=== PATIENT | female | born 1940 | race Caucasian/White ===

== ENCOUNTER 2017-01-17 14:49 | Emergency (ER) | payer MEDICARE, OTHER ==
[~2017-01-17] VITALS: Ht 152.4 cm; Wt 63.5 kg
[~2017-01-17 14:49] MED LIST: ACET325T45 PO; ADV25050 INH; ALBU18HF IH; AMIO200T46 PO; ASC500 PO; ASPI81TA3 PO; ATOR20TA38 PO; COU3 PO; DOCU240C14 PO; FERR-55 PO; FURO-109 PO; LISI-523 PO; MULT1TAB13 PO; Metoprolol Succinate PO; OMEP20CA9 PO; PROT946L PO; SERT50TA PO
[2017-01-17 15:00] VITALS: Ht 152.4 cm; Wt 63.5 kg
[2017-01-17] MEDS ORDERED: ACETAMINOPHEN 500 MG TAB PO STA (15:42)
--- NOTE | 2017-01-17 16:28 | RADRPT ---
PROCEDURE: XR Chest. CLINICAL INDICATION: Chest pain , cough TECHNIQUE: Single frontal view of the chest was obtained COMPARISON: 09/15/14 FINDINGS: The heart is enlarged. The thoracic aorta is calcified. The patient is status post sternotomy. There is mild bibasilar lower lobe linear atelectasis. The lungs are otherwise clear. There is no pleural effusion or pneumothorax. RPTAT: AA IMPRESSION: Mild cardiomegaly. Calcified aorta consistent with atherosclerotic disease. Mild bibasilar linear atelectatic changes. .Danial France MD, MD Date Time Electronically viewed and signed by .Danial France MD, on 01/17/2017 16:28 .S/
[2017-01-17] MEDS ORDERED: D-ME473S18 PO (16:31)
[2017-01-17] MEDS ORDERED: ACET500C5 PO (16:31)
[2017-01-17] MEDS ORDERED: AZIT250T94 PO (16:31)
--- NOTE | 2017-01-17 16:33 | ERD ---
ER Documentation Chief Complaint Date/Time DATE: 01/17/17 TIME: 16:32 Chief Complaint cough x 2 weeks HPI 76-year-old female presents with a cough for last 2 weeks which is productive sputum. She denies fevers, chest pain, vomiting, abdominal pain, neck stiffness , rashes per ROS All systems reviewed and are negative except as per history of present illness. Medications Home Meds Active Scripts Acetaminophen* (Tylophen*) 500 Mg Capsule, 1 CAP PO Q6H Y for PAIN AND OR ELEVATED TEMP, #15 CAP Prov:FREDI SPRINGER MD 01/17/17 Dextromethorphan Hb-Promethazine Hcl (Promethazine DM Syrup) 473 Ml Syrup, 5 ML PO Q6H Y for COUGH, #4 OZ Prov:FREDI SPRINGER MD 01/17/17 Azithromycin* (Zithromax*) 250 Mg Tablet, 250 MG PO .ZPACK DIRECTED, #6 TAB TAKE 500 MG (2 TABS) THE FIRST DAY THEN 250 MG (1 TAB) DAYS 2-5 Prov:FREDI SPRINGER MD 01/17/17 Warfarin Sod (Coumadin) 3 Mg Tab, 3 MG PO ONCE@17, #5 Prov:VENICE ROSALES NP 09/15/14 [Metoprolol Succinate] 25 MG TABSR No Conflict Check, 12.5 MG PO HS for 30 Days Prov:VENICE ROSALES NP 09/15/14 Lisinopril* (Zestril*) 5 Mg Tab, 5 MG PO DAILY for 30 Days Prov:VENICE ROSALES NP 09/15/14 Furosemide* (Lasix*) 40 Mg Tab, 40 MG PO DAILY for 30 Days Prov:VENICE ROSALES NP 09/15/14 Atorvastatin Calcium* (Atorvastatin Calcium*) 20 Mg Tab, 40 MG PO HS for 30 Days Prov:VENICE ROSALES NP 09/15/14 Amiodarone Hcl* (Cordarone*) 200 Mg Tab, 100 MG PO DAILY for 30 Days, TAB Prov:VENICE ROSALES NP 09/15/14 Docusate Calcium* (Docusate Calcium*) 240 Mg Cap, 240 MG PO DAILY for 30 Days Prov:VENICE ROSALES NP 08/26/14 Reported Medications Sertraline Hcl* (Zoloft*) 50 Mg Tablet, 50 MG PO DAILY, TAB 09/10/14 Ascorbic Acid (Vitamin C) 500 Mg Tab, 500 MG PO DAILY, TAB 09/10/14 Albuterol Sulfate* (Ventolin HFA*) 18 Gm Hfa.aer.ad, 2 PUFF IH Q4H Y for WHEEZING AND RESP DISTRESS, EA 09/10/14 Acetaminophen* (Acetaminophen*) 325 Mg Tablet, 650 MG PO Q4H Y for FEVER GREATER THAN 100.6, TAB 09/10/14 Protein Supplement (Promod) 946 Ml Liquid, 30 ML PO TID 09/10/14 Omeprazole* (Prilosec*) 20 Mg Capsule.dr, 20 MG PO BID, CAP 09/10/14 Multivitamins/Minerals* (Multivitamin w/Minerals*) 1 Tab Tablet, 1 TAB PO DAILY , TAB 09/10/14 Ferrous Sulfate* (Ferrous Sulfate*) 325 Mg Tablet, 325 MG PO DAILY, TAB 09/10/14 Salmeterol Xinaf/Fluticasone* (Advair*) 250-50 Diskus Inhaler, 1 INH INH BID, INH 09/10/14 Aspirin* (Aspirin* Chew) 81 Mg Tab.chew, 81 MG PO DAILY, TAB.CHEW 09/10/14 Allergies Allergies: Coded Allergies: No Known Drug Allergies (Verified Allergy, Unknown, 09/10/14) PMhx/Soc History of Surgery: Yes (CABG) Hx Neurological Disorder: No Hx Respiratory Disorders: Yes (ashtma) Hx Cardiac Disorders: Yes (pacemaker, chest pain, high cholesterol, cad) Hx Psychiatric Problems: No Hx Miscellaneous Medical Probl: Yes (CAD, L popliteal DVT,htn asthma, COPD) Hx Alcohol Use: No Hx Substance Use: No Hx Tobacco Use: No Physical Exam Vitals Vital Signs Date Time Temp Pulse Resp B/P Pulse Ox O2 Delivery O2 Flow Rate FiO2 01/17/17 15:00 97.6 50 20 128/60 97 Physical Exam Const: [] Alert, [id number] per Head: Atraumatic Eyes: Normal Conjunctiva ENT: Normal External Ears, Nose and Mouth. Neck: Full range of motion..~ No meningismus. Resp: Clear to auscultation bilaterally Cardio: Regular rate and rhythm, no murmurs Abd: Soft, non tender, non distended. Normal bowel sounds Skin: No petechiae or rashes Back: No midline or flank tenderness Ext: No cyanosis, or edema Neur: Awake and alert Psych: Normal Mood and Affect Results 24 hrs Current Medications Medications (Trade) Dose Ordered Sig/Kathryn Route PRN Reason Start Time Stop Time Status Last Admin Dose Admin Acetaminophen (Tylenol Tab) 500 mg ONCE STAT PO 01/17/17 15:42 01/17/17 15:43 DC 01/17/17 15:57 Procedures/MDM Chest X-ray 1V Interpreted by me: Soft Tissue: No acute abnormalities Bones: No acute abnormalities Mediastinum/Cardiac Silhouette/Lungs: [No acute abnormalities]. Impression have normal 1 view chest x-ray Patient presents with productive cough for last 2 weeks. She will be treated given the duration of Zithromax, promethazine and Tylenol. There is no evidence of hypoxemia, respiratory distress, signs or symptoms of PE, acute coronary syndrome. The patient was stable with no new complaints during the ER course. Clinically, there is no current evidence to suggest meningitis, sepsis, acute abdomen, pneumonia, acute coronary syndrome, pulmonary embolism, or any other emergent condition appearing to require further evaluation or hospitalization. The patient should certainly return for any new or worsening symptoms per the aftercare instructions. They should otherwise follow-up with her primary care doctor for reevaluation this week. Departure Diagnosis: Primary Impression: Cough Condition: Stable Patient Instructions: Acute Bronchitis Additional Instructions: X-ray normal. Cheque otro vez con randolph doctor primario en el proximo mead or regresa para mas o nueva simptomas. FREDI SPRINGER MD January 17, 2017 16:33
[2017-01-17 16:55] VITALS: BP 163/70; PULSE 58; RESP 18; TEMP 96.9
== END 2017-01-17 16:57 | disposition home or self-care (01) ==
LOC: FTE 14:49
DX: R05 Cough (principal); I10 Essential (primary) hypertension; J45.909 Unspecified asthma, uncomplicated; J44.9 Chronic obstructive pulmonary disease, unspecified; I25.10 Atherosclerotic heart disease of native coronary artery without angina pectoris; Z79.01 Long term (current) use of anticoagulants; Z79.82 Long term (current) use of aspirin; Z98.61 Coronary angioplasty status; Z95.0 Presence of cardiac pacemaker
CPT/HCPCS: 71010

== ENCOUNTER 2018-12-31 09:04 | Observation (INO) | payer MEDICARE, OTHER ==
[~2018-12-31] VITALS: Ht 157.5 cm; Wt 54.4 kg
[~2018-12-31 09:04] MED LIST changes: +ACET500C5 PO; +ASPI-903 PO; -ASPI81TA3 PO; +AZIT250T PO; +D-ME473S18 PO
--- NOTE | 2018-12-31 09:57 | ERD ---
ER Documentation Chief Complaint Chief Complaint cough, congestion & nausea x1wk, denies pain HPI This is an 78-year-old woman complaining of pink sputum cough, shortness of breath, dyspnea on exertion, and chest congestion x1 week. Patient states her symptoms have been constant and daily, she denies fevers or chills, no chest pam n, no vomiting or diarrhea. Patient uses ANAND inhibitor therapy for blood pressure control daily ROS All systems reviewed and are negative except as per history of present illness. Medications Home Meds Reported Medications Aspirin* (Aspirin* EC) 81 Mg Tablet.dr, 81 MG PO DAILY, TAB 12/31/18 Levothyroxine Sodium* (Levothyroxine Sodium*) 88 Mcg Tablet, 88 MCG PO BEFORE BREAKFAST, #30 TAB 12/31/18 Atorvastatin Calcium* (Atorvastatin Calcium*) 20 Mg Tablet, 20 MG PO QHS, #30 TAB 12/31/18 Amiodarone Hcl* (Amiodarone Hcl*) 200 Mg Tablet, 200 MG PO DAILY, #30 TAB 12/31/18 Enalapril Maleate* (Enalapril Maleate*) 2.5 Mg Tablet, 2.5 MG PO DAILY, TAB 12/31/18 Omeprazole* (Omeprazole*) 20 Mg Capsule.dr, 20 MG PO DAILY, #30 CAP 12/31/18 Discontinued Reported Medications Sertraline Hcl* (Zoloft*) 50 Mg Tablet, 50 MG PO DAILY, TAB 09/10/14 Ascorbic Acid (Vitamin C) 500 Mg Tab, 500 MG PO DAILY, TAB 09/10/14 Albuterol Sulfate* (Ventolin HFA*) 18 Gm Hfa.aer.ad, 2 PUFF IH Q4H PRN for WHEEZING AND RESP DISTRESS, EA 09/10/14 Acetaminophen* (Acetaminophen*) 325 Mg Tablet, 650 MG PO Q4H PRN for FEVER GREATER THAN 100.6, TAB 09/10/14 Protein Supplement (Promod) 946 Ml Liquid, 30 ML PO TID 09/10/14 Omeprazole* (Prilosec*) 20 Mg Capsule.dr, 20 MG PO BID, CAP 09/10/14 Multivitamins/Minerals* (Multivitamin w/Minerals*) 1 Tab Tablet, 1 TAB PO DAILY, TAB 09/10/14 Ferrous Sulfate* (Ferrous Sulfate*) 325 Mg Tablet, 325 MG PO DAILY, TAB 09/10/14 Salmeterol Xinaf/Fluticasone* (Advair*) 250-50 Diskus Inhaler, 1 INH INH BID, INH 09/10/14 Aspirin* (Aspirin* Chew) 81 Mg Tab.chew, 81 MG PO DAILY, TAB.CHEW 09/10/14 Discontinued Scripts Acetaminophen* (Tylophen*) 500 Mg Capsule, 1 CAP PO Q6H PRN for PAIN AND OR ELEVATED TEMP, #15 CAP Prov:FREDI SPRINGER MD 01/17/17 Dextromethorphan Hb-Promethazine Hcl (Promethazine DM Syrup) 473 Ml Syrup, 5 ML PO Q6H PRN for COUGH, #4 OZ Prov:FREDI SPRINGER MD 01/17/17 Azithromycin* (Zithromax*) 250 Mg Tablet, 250 MG PO .ZPACK DIRECTED, #6 TAB TAKE 500 MG (2 TABS) THE FIRST DAY THEN 250 MG (1 TAB) DAYS 2-5 Prov:FREDI SPRINGER MD 01/17/17 Warfarin Sod (Coumadin) 3 Mg Tab, 3 MG PO ONCE@17, #5 Prov:VENICE ROSALES NP 09/15/14 [Metoprolol Succinate] 25 MG TABSR No Conflict Check, 12.5 MG PO HS for 30 Days Prov:VENICE ROSALES NP 09/15/14 Lisinopril* (Zestril*) 5 Mg Tab, 5 MG PO DAILY for 30 Days Prov:VENICE ROSALES NP 09/15/14 Furosemide* (Lasix*) 40 Mg Tab, 40 MG PO DAILY for 30 Days Prov:VENICE ROSALES NP 09/15/14 Atorvastatin Calcium* (Atorvastatin Calcium*) 20 Mg Tab, 40 MG PO HS for 30 Days Prov:VENICE ROSALES NP 09/15/14 Amiodarone Hcl* (Cordarone*) 200 Mg Tab, 100 MG PO DAILY for 30 Days, TAB Prov:VENICE ROSALES RADIAL DRILL OPERATOR 09/15/14 Docusate Calcium* (Docusate Calcium*) 240 Mg Cap, 240 MG PO DAILY for 30 Days Prov:VENICE ROSALES RADIAL DRILL OPERATOR 08/26/14 Allergies Allergies: Coded Allergies: No Known Drug Allergies (Verified Allergy, Unknown, 12/31/18) PMhx/Soc History of CHF LVEF of 45%, COPD, left popliteal DVT, CAD status post CABG, hypertension, history of heparin-induced thrombocytopenia History of Surgery: Yes (CABG, HYSTERECTOMY , BI-LATERAL CARPAL TUNNEL SURGERY ) Hx Neurological Disorder: No Hx Respiratory Disorders: Yes (ashtma) Hx Cardiac Disorders: Yes (pacemaker, chest pain, high cholesterol, cad) Hx Psychiatric Problems: No Hx Miscellaneous Medical Probl: Yes (CAD, L popliteal DVT,htn asthma, COPD) Hx Alcohol Use: No Hx Substance Use: No Hx Tobacco Use: No Smoking Status: Never smoker FmHx Family History: No diabetes Physical Exam Vitals Vital Signs Date Temp Pulse Resp B/P (MAP) Pulse Ox O2 O2 Flow FiO2 Time Delivery Rate 12/31/18 62 12 131/51 97 Room Air 12:11 (77) 12/31/18 67 17 121/46 100 Room Air 09:49 (71) 12/31/18 98.9 65 18 152/66 95 09:21 (94) Physical Exam GENERAL: Well-developed, well-nourished, dyspneic, afebrile NEURO: Alert and oriented 3, cranial nerves II through XII intact bilaterally, pupils equal round reactive to light, no focal deficits or facial asymmetry CARDIAC: Regular rate and rhythm, no murmurs rubs or gallops LUNGS: Poor breath sounds bilaterally, no crackles or stridor ABDOMEN: Soft nontender, no guarding, no rigidity, no rebound, no psoas sign no obturator sign. Normoactive bowel sounds SKIN: Warm and dry to touch, no abrasions, contusions, or hematomas, no lacerations, no ecchymosis, no target lesions, and without ulcers EXTREMITIES: No clubbing cyanosis or edema, calves are bilaterally symmetrical, no Homans sign, no popliteal cord sign. Distal pulses equal and bilateral Result Diagram: 12/31/18 1026 12/31/18 1026 Results 24 hrs Laboratory Tests Test 12/31/18 10:26 White Blood Count 8.4 10^3/ul Red Blood Count 4.52 10^6/ul Hemoglobin 14.2 g/dl Hematocrit 43.2 % Mean Corpuscular Volume 95.6 fl Mean Corpuscular Hemoglobin 31.4 pg Mean Corpuscular Hemoglobin Concent 32.9 g/dl Red Cell Distribution Width 13.6 % Platelet Count 143 10^3/UL Mean Platelet Volume 13.0 fl Immature Granulocytes % 0.100 % Neutrophils % 47.4 % Lymphocytes % 32.1 % Monocytes % 17.3 % Eosinophils % 2.4 % Basophils % 0.7 % Nucleated Red Blood Cells % 0.0 /100WBC Immature Granulocytes # 0.010 10^3/ul Neutrophils # 4.0 10^3/ul Lymphocytes # 2.7 10^3/ul Monocytes # 1.5 10^3/ul Eosinophils # 0.2 10^3/ul Basophils # 0.1 10^3/ul Nucleated Red Blood Cells # 0.0 10^3/ul Sodium Level 142 mmol/L Potassium Level 3.8 mmol/L Chloride Level 102 mmol/L Carbon Dioxide Level 33 mmol/L Anion Gap 7 Blood Urea Nitrogen 16 mg/dl Creatinine 0.69 mg/dl Est Glomerular Filtrat Rate mL/min mL/min Glucose Level 99 mg/dl Calcium Level 9.3 mg/dl Total Bilirubin 0.7 mg/dl Direct Bilirubin 0.00 mg/dl Indirect Bilirubin 0.7 mg/dl Aspartate Amino Transf (AST/SGOT) 22 IU/L Alanine Aminotransferase (ALT/SGPT) 24 IU/L Alkaline Phosphatase 66 IU/L Troponin I < 0.012 ng/ml B-Type Natriuretic Peptide 1010 PG/ML Total Protein 7.0 g/dl Albumin 4.0 g/dl Globulin 3.00 g/dl Albumin/Globulin Ratio 1.33 Lipase 40 U/L Procedures/MDM IV line was established patient was placed on court recording monitor rhythm strip revealed a sinus rhythm at about 70 bpm with upright P and T waves. Patient was afebrile EKG performed, read by me revealed a normal sinus rhythm at 71 bpm, normal axis, narrow QRS complex, PVCs, no concerning ST elevations or depressions noted 1 view chest x-ray performed, read by me revealed atelectatic changes bilaterally, no acute infiltrates, no pneumothorax. CBC and electrolytes were normal, liver function tests were normal, troponin was negative, BNP over 1000 I administered furosemide 40 mg IV x1. Patient presented with shortness of breath, cough, dyspnea on exertion and will be admitted for decompensated heart failure. Departure Diagnosis: Primary Impression: Cough Additional Impression: CHF (congestive heart failure) Heart failure type: combined systolic and diastolic Heart failure chroni city: acute on chronic Qualified Codes: I50.43 - Acute on chronic combined systolic (congestive) and diastolic (congestive) heart failure Condition: LEANDRA Salvador MD Dec 31, 2018 09:57
[2018-12-31] MEDS ORDERED: OMEP20CA16 PO (11:05)
[2018-12-31] MEDS ORDERED: ENAL2.5T PO (11:05)
[2018-12-31] MEDS ORDERED: AMIO200T4 PO (11:06)
[2018-12-31] MEDS ORDERED: LEVO88TA3 PO (11:06)
[2018-12-31] MEDS ORDERED: ATOR20TA38 PO (11:06)
[2018-12-31] MEDS ORDERED: ASPI-817 PO (11:07)
[2018-12-31] MEDS ORDERED: FUROSEMIDE 40 MG INJ IV ONE (12:30)
--- NOTE | 2018-12-31 17:41 | RADRPT ---
Echocardiogram Report Patient Name: DALJIT WILEYPatient ID: [id number] : 1940 (78y 6m)Study Date: 12/31/2018 1:16:38 PM Gender: FAccession #: [id number] Tech: Sunitha Black RDCS Location: [facility] Ref.Physician: SUSIE ALVAREZ Height(Cm): BSA: Weight(Kg): Quality: AdequateAccount #: Procedures: Echocardiographic Report: Transthoracic echocardiogram with complete 2D, M-Mode, and doppler examination. Indications: Congestive Heart Failure. Measurements: 2D/M Mode Doppler Measurement Value Normal Range Measurement Value Normal Range LVIDd 2D 4.7 [ 3.8 - 5.2 ] cm AV Peak Pietro 1.0 [ 100.0 - 170.0 ] cm/sec LVIDs 2D 3.6 [ 2.2 - 3.5 ] cm AV Peak PG 4.0 [ 2.0 - 9.0 ] mmHg LVPWd 2D 1.1 [ 0.6 - 0.9 ] cm AI Peak PG 36.0 mmHg IVSd 2D 1.2 [ 0.6 - 0.9 ] cm AI Peak Pietro 3.0 cm/sec AoR Diam 2D 2.8 [ 2.3 - 3.1 ] cm AI PHT 562.0 msec EDV 2D 101.0 [ 46.0 - 106.0 ] ml LVOT Peak Pietro 0.7 [ 70.0 - 110.0 ] cm/sec ESV 2D 55.9 [ 14.0 - 42.0 ] ml LVOT Peak PG 2.0 [ 2.0 - 6.0 ] mmHg EF 2D 44.7 [ 54.0 - 74.0 ] percent MV E Peak Pietro 0.6 [ 60.0 - 130.0 ] cm/sec LA Dimen 2D 3.0 [ 2.7 - 3.8 ] cm MV A Peak Pietro 0.9 [ 100.0 - 120.0 ] cm/sec MV E/A 0.7 [ 0.8 - 1.5 ] ratio MV Decel Time 254 [ 104 - 258 ] msec Lat E` Pietro 0.1 [ 10.0 - 15.0 ] cm/sec Lateral E/E` 10.4 [ 1.0 - 2.0 ] ratio MV E/A 0.7 [ 0.8 - 1.5 ] ratio TR Peak Pietro 2.3 [ 100.0 - 280.0 ] cm/sec TR Peak PG 21.0 mmHg RVSP 24.0 [ 10.0 - 36.0 ] mmHg RA Pressure 3.0 mmHg Findings: Left Ventricle: Normal left ventricular cavity size. Mild concentric left ventricular hypertrophy. Mild global left ventricular systolic dysfunction. Ejection fraction is visually estimated at 45-50 %. Tissue Doppler/Mitral Doppler indices are consistent with impaired relaxation (Stage I diastolic dysfunction). Right Ventricle: Normal right ventricular size. Normal right ventricular systolic function. Left Atrium: The left atrium is normal in size. Right Atrium: The right atrium is normal in size. Mitral Valve: Normal appearance and function of the mitral valve with trace physiologic regurgitation. Aortic Valve: No hemodynamically significant aortic stenosis by doppler. Aortic cusps appear mildly calcified. Mild aortic valve regurgitation. Tricuspid Valve: Normal appearance of the tricuspid valve. Estimated peak PA systolic pressure 24 mmHg. There is trace tricuspid regurgitation. Pulmonic Valve: Pulmonic valve not well visualized. There is trace pulmonic regurgitation. Pericardium: Normal pericardium with no significant pericardial effusion. Aorta: Normal aortic root. IVC: Normal size and normal respiratory collapse consistent with normal right atrial pressure. Conclusions: Normal left ventricular cavity size. Mild concentric left ventricular hypertrophy. Mild global left ventricular systolic dysfunction. Ejection fraction is visually estimated at 45-50 %. Tissue Doppler/Mitral Doppler indices are consistent with impaired relaxation (Stage I diastolic dysfunction). Normal appearance and function of the mitral valve with trace physiologic regurgitation. No hemodynamically significant aortic stenosis by doppler. Aortic cusps appear mildly calcified. Mild aortic valve regurgitation. Normal appearance of the tricuspid valve. Estimated peak PA systolic pressure 24 mmHg. There is trace tricuspid regurgitation. Pulmonic valve not well visualized. There is trace pulmonic regurgitation. Electronically Signed By: Markos Xavier 2018-12-31 17:40:23 PDT
--- NOTE | 2018-12-31 18:27 | CONS ---
DATE OF ADMISSION: 12/31/2018 DATE OF CONSULTATION: 12/31/2018 TYPE OF CONSULTATION: Cardiology. REASON FOR CONSULTATION: Abnormal electrocardiogram, assess for acute coronary syndrome, shortness o f breath, congestive heart failure. REQUESTING PHYSICIAN: Patrice Cavazos MD HISTORY OF PRESENT ILLNESS: Ms. Rodríguez is an 78-year-old female with a history of coronary artery disease, status post coronary artery bypass graft surgery x5, CISNEROS to LAD, saphenous vein graft sequ ential to the ramus, OM1, OM2 and saphenous vein graft to PDA in 08/2014, cardiomyopathy with mildly depressed left ventricular ejection fraction by most recent echo in ____ at 50%, carotid endarterecto my, cardiac arrhythmia on amiodarone, hypertension, dyslipidemia who presents with complaints of coug h productive of green clear sputum, subjective fevers at home, nasal congestion. Upon arrival, tempe rature was 98.9, blood pressure 153/66, pulse 65, respiration 18, sat 95%. The patient's labs reveal ed white blood cell count of 8.4, hemoglobin 14.2, platelet count 143, sodium 142, potassium 3.8, cre atinine 0.6, BUN 16, troponin negative, BNP of 1010. The patient underwent a chest x-ray revealing c ardiomegaly, atherosclerotic disease, bilateral chronic lung changes, no acute cardiopulmonary diseas e. The patient's electrocardiogram revealed sinus rhythm, rate of 71, normal axis, normal intervals, frequent PACs, nonspecific ST-T wave abnormalities, borderline inferior Qs. The patient thus far be en treated with Lasix 40 mg IV x1 and now awaits admit to the floor. PAST MEDICAL HISTORY: As above in HPI. MEDICATIONS PRIOR TO ADMIT: 1. Amiodarone 200 mg daily. 2. Lipitor 20 mg at bedtime. 3. Enalapril 2.5 mg daily. 4. Aspirin 81 mg daily. 5. Omeprazole 20 mg daily. 6. Synthroid 88 mcg daily. ALLERGIES: NO KNOWN DRUG ALLERGIES. SOCIAL HISTORY: No current tobacco, EtOH or illicit drug use. FAMILY HISTORY: No history of sudden cardiac or early CAD. REVIEW OF SYSTEMS: As above in HPI. CONSTITUTIONAL: No fevers, chills. PULMONARY: No current shortness of breath. CARDIOVASCULAR: No current chest pain. GASTROINTESTINAL: No vomiting. GENITOURINARY: No hematuria. MUSCULOSKELETAL: Degenerative joint disease. PSYCHIATRIC: No documented psych history. NEUROLOGIC: No documented history of CVA. ENDOCRINE: No documented history of diabetes mellitus. PULMONARY: Cough, shortness of breath. PHYSICAL EXAMINATION: VITAL SIGNS: Temperature of 98.9, blood pressure most recently 103/60, pulse 67, respiratory rate 14 , satting 96% on 2 liters. GENERAL: The patient is alert, awake, in no acute distress. NECK: JVP is approximately 8 to 9 cm water. CHEST: Fair air movement throughout. HEART: Regular rate and rhythm. Normal S1, S2, I/ systolic murmur, nondisplaced PMI. ABDOMEN: Positive bowel sounds, soft. EXTREMITIES: No edema, 1+ pulses, posterior tibial. LABORATORY DATA: As above in HPI. No further labs for my review at this time. IMAGING STUDIES: As above in HPI. No further imaging studies for my review at this time. ELECTROCARDIOGRAM: As above in HPI. No further electrocardiograms for my review at this time. IMPRESSION: 1. Increased BNP, assess for congestive heart failure. 2. History of coronary artery disease, status post coronary artery bypass graft surgery x5 in 2014. 3. Hypertension. 4. Dyslipidemia. 5. Cough. 6. Upper respiratory infection. 7. History of cardiac arrhythmia, on amiodarone. RECOMMENDATIONS: 1. At this time, we would admit the patient to telemetry monitoring to follow rhythm and rate contro l closely. 2. We would complete a rule out for myocardial infarction to ensure the patient's EKG abnormalities are chronic in nature and not due to any recent acute coronary syndrome and that PVCs are not due to an acute coronary syndrome. 3. We would repeat the patient's potassium greater than 4 and check a magnesium and keep greater clint n 2 as possible. 4. Keep the patient on gentle Lasix diuresis, following strict I's and O's to grade diuresis closely . 5. We will resume the patient's baseline enalapril as well as atorvastatin and amiodarone as well as patient's baseline aspirin. 6. We would likely initiate antibiotic therapy on this patient and follow up all culture data. 7. Check a 2D echo for patient's ejection fraction, wall motion or rule out major valve abnormalitie s. 8. Check a fasting lipid panel for general risk stratification and adjust the patient's statin thera py as necessary. 9. Additionally check a TSH to be ensure that subclinical hyperthyroidism is not contributing to any bouts of cardiac arrhythmias. 10. ____ initiation of bronchodilators. Thank you for allowing me to take part in the care of this patient. I will continue to follow very h er closely with you with further recommendations to be made [facility] Dictated By: FAMILIA FOSTER/ELZA Conf#: [id number] DID#: [id number] CC: DOT ALMENDAREZ DO; PATRICE CAVAZOS MD;*EndCC*
--- NOTE | 2018-12-31 20:47 | HP ---
Date/Time of Note Date/Time of Note DATE: 12/31/18 TIME: 20:24 Assessment/Plan VTE Prophylaxis SCD contraindicated: other Pharmacological prophylaxis: other Pharm contraindication: other Lines/Catheters IV Catheter Type (from Nrsg): Saline Lock Assessment/Plan Assessment/Plan - Congestive heart failure- Elevated BNP= 1010.0 - Recent Echo LVEF- 40% -50% - Upper respiratory infection - Cough 2/2 above - Hx History of CHF LVEF of 45%, -SP Pacemaker - History of cardiac arrhythmia, on amiodarone. - 2014- History of coronary artery disease, status post coronary artery bypass graft surgery x5 - Hypertension -history of heparin-induced thrombocytopenia - Dyslipidemia. -Hx COPD - asthma- controlled per patient - Hx Left popliteal DVT Result Diagram: 12/31/18 1026 12/31/18 1026 Results 24hrs Laboratory Tests Test 12/31/18 10:26 12/31/18 18:13 White Blood Count 8.4 Red Blood Count 4.52 Hemoglobin 14.2 # Hematocrit 43.2 # Mean Corpuscular Volume 95.6 Mean Corpuscular Hemoglobin 31.4 Mean Corpuscular Hemoglobin Concent 32.9 Red Cell Distribution Width 13.6 Platelet Count 143 Mean Platelet Volume 13.0 H Immature Granulocytes % 0.100 Neutrophils % 47.4 Lymphocytes % 32.1 Monocytes % 17.3 H Eosinophils % 2.4 Basophils % 0.7 Nucleated Red Blood Cells % 0.0 Immature Granulocytes # 0.010 Neutrophils # 4.0 Lymphocytes # 2.7 Monocytes # 1.5 H Eosinophils # 0.2 Basophils # 0.1 Nucleated Red Blood Cells # 0.0 Sodium Level 142 Potassium Level 3.8 Chloride Level 102 Carbon Dioxide Level 33 H Anion Gap 7 Blood Urea Nitrogen 16 Creatinine 0.69 Est Glomerular Filtrat Rate mL/min Glucose Level 99 Calcium Level 9.3 Total Bilirubin 0.7 Direct Bilirubin 0.00 Indirect Bilirubin 0.7 Aspartate Amino Transf (AST/SGOT) 22 Alanine Aminotransferase (ALT/SGPT) 24 Alkaline Phosphatase 66 Troponin I < 0.012 0.015 B-Type Natriuretic Peptide 1010 H Total Protein 7.0 Albumin 4.0 Globulin 3.00 Albumin/Globulin Ratio 1.33 Lipase 40 HPI/ROS Admit Date/Time Admit Date/Time ROS HPI This is an 78-year-old female is admitted with complaining of pink sputum cough, shortness of breath, dyspnea on exertion, and chest congestion x1 week. Patient states her symptoms have been constant and daily, she denies fevers or chills, no chest pain, no vomiting or diarrhea. Patient uses ANAND inhibitor therapy for blood pressure control daily. Patient is admitted under Dr Montes for further treatment/evaluation ROS All systems reviewed and are negative except as per history of present illness. Medications Home Meds Reported Medications Aspirin* (Aspirin* EC) 81 Mg Tablet.dr, 81 MG PO DAILY, TAB 12/31/18 Levothyroxine Sodium* (Levothyroxine Sodium*) 88 Mcg Tablet, 88 MCG PO BEFORE BREAKFAST, #30 TAB 12/31/18 Atorvastatin Calcium* (Atorvastatin Calcium*) 20 Mg Tablet, 20 MG PO QHS, #30 TAB 12/31/18 Amiodarone Hcl* (Amiodarone Hcl*) 200 Mg Tablet, 200 MG PO DAILY, #30 TAB 12/31/18 Enalapril Maleate* (Enalapril Maleate*) 2.5 Mg Tablet, 2.5 MG PO DAILY, TAB 12/31/18 Omeprazole* (Omeprazole*) 20 Mg Capsule.dr, 20 MG PO DAILY, #30 CAP 12/31/18 Discontinued Reported Medications Sertraline Hcl* (Zoloft*) 50 Mg Tablet, 50 MG PO DAILY, TAB 09/10/14 Ascorbic Acid (Vitamin C) 500 Mg Tab, 500 MG PO DAILY, TAB 09/10/14 Albuterol Sulfate* (Ventolin HFA*) 18 Gm Hfa.aer.ad, 2 PUFF IH Q4H PRN for WHEEZING AND RESP DISTRESS, EA 09/10/14 Acetaminophen* (Acetaminophen*) 325 Mg Tablet, 650 MG PO Q4H PRN for FEVER GREATER THAN 100.6, TAB 09/10/14 Protein Supplement (Promod) 946 Ml Liquid, 30 ML PO TID 09/10/14 Omeprazole* (Prilosec*) 20 Mg Capsule.dr, 20 MG PO BID, CAP 09/10/14 Multivitamins/Minerals* (Multivitamin w/Minerals*) 1 Tab Tablet, 1 TAB PO DAILY, TAB 09/10/14 Ferrous Sulfate* (Ferrous Sulfate*) 325 Mg Tablet, 325 MG PO DAILY, TAB 09/10/14 Salmeterol Xinaf/Fluticasone* (Advair*) 250-50 Diskus Inhaler, 1 INH INH BID, INH 09/10/14 Aspirin* (Aspirin* Chew) 81 Mg Tab.chew, 81 MG PO DAILY, TAB.CHEW 09/10/14 Discontinued Scripts Acetaminophen* (Tylophen*) 500 Mg Capsule, 1 CAP PO Q6H PRN for PAIN AND OR ELEVATED TEMP, #15 CAP Prov:FREDI SPRINGER MD 01/17/17 Dextromethorphan Hb-Promethazine Hcl (Promethazine DM Syrup) 473 Ml Syrup, 5 ML PO Q6H PRN for COUGH, #4 OZ Prov:FREDI SPRINGER MD 01/17/17 Azithromycin* (Zithromax*) 250 Mg Tablet, 250 MG PO .ZPACK DIRECTED, #6 TAB TAKE 500 MG (2 TABS) THE FIRST DAY THEN 250 MG (1 TAB) DAYS 2-5 Prov:FREDI SPRINGER MD 01/17/17 Warfarin Sod (Coumadin) 3 Mg Tab, 3 MG PO ONCE@17, #5 Prov:VENICE ROSALES NP 09/15/14 [Metoprolol Succinate] 25 MG TABSR No Conflict Check, 12.5 MG PO HS for 30 Days Prov:VENICE ROSALES NP 09/15/14 Lisinopril* (Zestril*) 5 Mg Tab, 5 MG PO DAILY for 30 Days Prov:VENICE ROSALES NP 09/15/14 Furosemide* (Lasix*) 40 Mg Tab, 40 MG PO DAILY for 30 Days Prov:VENICE ROSALES NP 09/15/14 Atorvastatin Calcium* (Atorvastatin Calcium*) 20 Mg Tab, 40 MG PO HS for 30 Days Prov:VENICE ROSALES NP 09/15/14 Amiodarone Hcl* (Cordarone*) 200 Mg Tab, 100 MG PO DAILY for 30 Days, TAB Prov:VENICE ROSALES NP 09/15/14 Docusate Calcium* (Docusate Calcium*) 240 Mg Cap, 240 MG PO DAILY for 30 Days Prov:VENICE ROSALES NP 08/26/14 Allergies Allergies: Coded Allergies: No Known Drug Allergies (Verified Allergy, Unknown, 12/31/18) Eyes: no complaints ENT: no complaints Respiratory: cough Cardiovascular: no complaints Gastrointestinal: no complaints Genitourinary: no complaints Musculoskeletal: no complaints Skin: no complaints Neurologic: no complaints Endocrine: no complaints Lymphatic: no complaints Psychological: nl mood/affect Immunologic: no complaints PMH/Family/Social Past Medical History PMhx/Soc History of CHF LVEF of 45%, COPD, left popliteal DVT, CAD status post CABG, hypertension, history of heparin-induced thrombocytopenia History of Surgery: Yes (CABG, HYSTERECTOMY , BI-LATERAL CARPAL TUNNEL SURGERY ) Hx Neurological Disorder: No Hx Respiratory Disorders: Yes (ashtma) Hx Cardiac Disorders: Yes (pacemaker, chest pain, high cholesterol, cad) Hx Psychiatric Problems: No Hx Miscellaneous Medical Probl: Yes (CAD, L popliteal DVT,htn asthma, COPD) Hx Alcohol Use: No Hx Substance Use: No Hx Tobacco Use: No Smoking Status: Never smoker FmHx Family History: No diabetes Medications Current Medications Furosemide (Lasix) 20 mg DAILY IV ; Start 01/01/19 at 09:00 Amiodarone HCl (Cordarone) 200 mg DAILY PO ; Start 01/01/19 at 09:00 Aspirin (Halfprin) 81 mg DAILY PO ; Start 01/01/19 at 09:00 Atorvastatin Calcium (Lipitor) 20 mg QHS PO ; Start 12/31/18 at 21:00 Enalapril Maleate (Vasotec) 2.5 mg DAILY PO ; Start 01/01/19 at 09:00 Levothyroxine Sodium (Synthroid) 88 mcg BEFORE BREAKFAST PO ; Start 01/01/19 at 07:00 Coded Allergies: No Known Drug Allergies (Verified Allergy, Unknown, 12/31/18) Past Surgical History Past Surgical Hx: coronary bypass surgery Family History Significant Family History: no pertinent family hx, other (No history of sudden cardiac or early CAD.) Social History Alcohol Use: none Smoking Status: Never smoker Drug Use: none Exam/Review of Systems Vital Signs Vitals Vital Signs Date Temp Pulse Resp B/P (MAP) Pulse Ox O2 O2 Flow FiO2 Time Delivery Rate 12/31/18 98.9 63 16 114/52 100 Nasal 3.0 18:49 (72) Cannula Exam Constitutional: alert, oriented, well developed Psych: nl mood/affect Eyes: nl lids, nl sclera ENMT: nl external ears & nose Neck: non-tender Respiratory: clear to auscultation Cardiovascular: nl pulses, other (S1S2) Gastrointestinal: soft, non-tender Musculoskeletal: nl extremities to inspection Extremities: normal pulses Neurological: nl mental status, nl speech Skin: nl turgor Lymph: nontender SUSIE ALVAREZ Dec 31, 2018 20:36
[2018-12-31 21:35] VITALS: Ht 157.5 cm; Wt 54.4 kg
[2018-12-31 21:36] VITALS: PULSE 64
[2018-12-31 21:45] VITALS: BP 164/73; PULSE 62; RESP 19
[2018-12-31] MEDS: ATORVASTATIN 20 MG TAB PO SCH (22:26)
[2018-12-31] MEDS: CEFTRIAXONE 1 GM/50 ML (PMX) 50 ML IVPB SCH (22:34)
[2019-01-01] VITALS (12 sets, daily range): BP systolic 101–125; BP diastolic 51–70; PULSE 60–72; RESP 18–19
[2019-01-01] MEDS: ALBUTEROL/IPRATROPIUM (NEB) 3 ML AMP HHN PRN ×2 (03:02→20:34)
--- NOTE | 2019-01-01 06:20 | PN ---
Date/Time of Note Date/Time of Note DATE: 01/01/19 TIME: 06:20 Assessment/Plan Lines/Catheters IV [facility]ter Type (from [facility]): Saline Lock Urinary Cath still in place: No Assessment/Plan Result Diagram: 01/01/19 0515 12/31/18 1026 Results 24hrs Laboratory Tests Test 12/31/18 10:26 12/31/18 18:13 01/01/19 00:12 01/01/19 05:15 White Blood Count 8.4 6.0 # Red Blood Count 4.52 4.31 Hemoglobin 14.2 # 13.7 Hematocrit 43.2 # 41.3 Mean Corpuscular 95.6 95.8 Volume Mean Corpuscular 31.4 31.8 Hemoglobin Mean Corpuscular 32.9 33.2 Hemoglobin Concent Red Cell 13.6 13.3 Distribution Width Platelet Count 143 135 L Mean Platelet Volume 13.0 H 12.9 H Immature 0.100 0.300 Granulocytes % Neutrophils % 47.4 36.6 L Lymphocytes % 32.1 42.1 Monocytes % 17.3 H 17.1 H Eosinophils % 2.4 3.2 Basophils % 0.7 0.7 Nucleated Red Blood 0.0 0.0 Cells % Immature 0.010 0.020 Granulocytes # Neutrophils # 4.0 2.2 Lymphocytes # 2.7 2.5 Monocytes # 1.5 H 1.0 H Eosinophils # 0.2 0.2 Basophils # 0.1 0.0 Nucleated Red Blood 0.0 0.0 Cells # Sodium Level 142 Potassium Level 3.8 Chloride Level 102 Carbon Dioxide Level 33 H Anion Gap 7 Blood Urea Nitrogen 16 Creatinine 0.69 Est Glomerular Filtrat Rate mL/min Glucose Level 99 Calcium Level 9.3 Total Bilirubin 0.7 Direct Bilirubin 0.00 Indirect Bilirubin 0.7 Aspartate Amino 22 Transf (AST/SGOT) Alanine 24 Aminotransferase (AL T/SGPT) Alkaline Phosphatase 66 Troponin I < 0.012 0.015 0.014 B-Type Natriuretic 1010 H Peptide Total Protein 7.0 Albumin 4.0 Globulin 3.00 Albumin/Globulin 1.33 Ratio Lipase 40 Exam/Review of Systems Exam Vitals Vital Signs Date Temp Pulse Resp B/P (MAP) Pulse Ox O2 O2 Flow FiO2 Time Delivery Rate 01/01/19 63 04:01 01/01/19 97.8 19 124/65 98 04:00 (84) 01/01/19 21 03:02 12/31/18 Nasal 2.0 22:10 Cannula Intake and Output 12/31/18 12/31/18 01/01/19 1515:00 23:00 07:00 IntakeIntake Total 50 ml BalanceBalance 50 ml Results Results 24hrs Laboratory Tests Test 12/31/18 10:26 12/31/18 18:13 01/01/19 00:12 01/01/19 05:15 White Blood Count 8.4 6.0 # Red Blood Count 4.52 4.31 Hemoglobin 14.2 # 13.7 Hematocrit 43.2 # 41.3 Mean Corpuscular 95.6 95.8 Volume Mean Corpuscular 31.4 31.8 Hemoglobin Mean Corpuscular 32.9 33.2 Hemoglobin Concent Red Cell 13.6 13.3 Distribution Width Platelet Count 143 135 L Mean Platelet Volume 13.0 H 12.9 H Immature 0.100 0.300 Granulocytes % Neutrophils % 47.4 36.6 L Lymphocytes % 32.1 42.1 Monocytes % 17.3 H 17.1 H Eosinophils % 2.4 3.2 Basophils % 0.7 0.7 Nucleated Red Blood 0.0 0.0 Cells % Immature 0.010 0.020 Granulocytes # Neutrophils # 4.0 2.2 Lymphocytes # 2.7 2.5 Monocytes # 1.5 H 1.0 H Eosinophils # 0.2 0.2 Basophils # 0.1 0.0 Nucleated Red Blood 0.0 0.0 Cells # Sodium Level 142 Potassium Level 3.8 Chloride Level 102 Carbon Dioxide Level 33 H Anion Gap 7 Blood Urea Nitrogen 16 Creatinine 0.69 Est Glomerular Filtrat Rate mL/min Glucose Level 99 Calcium Level 9.3 Total Bilirubin 0.7 Direct Bilirubin 0.00 Indirect Bilirubin 0.7 Aspartate Amino 22 Transf (AST/SGOT) Alanine 24 Aminotransferase (AL T/SGPT) Alkaline Phosphatase 66 Troponin I < 0.012 0.015 0.014 B-Type Natriuretic 1010 H Peptide Total Protein 7.0 Albumin 4.0 Globulin 3.00 Albumin/Globulin 1.33 Ratio Lipase 40 Medications Medication Current Medications Furosemide (Lasix) 20 mg DAILY IV ; Start 01/01/19 at 09:00 Amiodarone HCl (Cordarone) 200 mg DAILY PO ; Start 01/01/19 at 09:00 Aspirin (Halfprin) 81 mg DAILY PO ; Start 01/01/19 at 09:00 Atorvastatin Calcium (Lipitor) 20 mg QHS PO Last administered on 12/31/18at 22:26; Admin Dose 20 MG; Start 12/31/18 at 21:00 Enalapril Maleate (Vasotec) 2.5 mg DAILY PO ; Start 01/01/19 at 09:00 Levothyroxine Sodium (Synthroid) 88 mcg BEFORE BREAKFAST PO ; Start 01/01/19 at 07:00 Guaifenesin/ Dextromethorphan (Robitussin Dm Liquid Cup) 10 ml Q6 PRN PO COUGH; Start 12/31/18 at 21:00 Ceftriaxone Sodium 50 ml @ 100 mls/hr DAILY IVPB Last administered on 12/31/18at 22:34; Admin Dose 100 MLS/HR; Start 12/31/18 at 22:00 Albuterol/ Ipratropium (Duoneb) 3 ml Q6H RESP THERAPY PRN HHN COUGH Last administered on 01/01/19at 03:02; Admin Dose 3 ML; Start 12/31/18 at 21:30 SUSIE ALVAREZ Jan 01, 2019 06:20
[2019-01-01] MEDS: LEVOTHYROXINE 88 MCG TAB PO SCH (06:22)
[2019-01-01] MEDS: ENALAPRIL 2.5 MG TAB PO SCH (08:59)
[2019-01-01] MEDS: AMIODARONE 200 MG TAB PO SCH (08:59)
[2019-01-01] MEDS: ASPIRIN (EC) 81 MG TAB PO SCH (08:59)
[2019-01-01] MEDS: FUROSEMIDE 20 MG INJ IV SCH (09:00)
[2019-01-01] MEDS: CEFTRIAXONE 1 GM/50 ML (PMX) 50 ML IVPB SCH (09:00)
--- NOTE | 2019-01-01 13:37 | CONS ---
Consult Date/Type/Reason Admit Date/Time Dec 31, 2018 at 12:23 Initial Consult Date Date/Time of Note DATE: 01/01/19 TIME: 13:35 Subjective NO acute events - pt comfortable - improved SOB - in sinus on tele now. ROS: No fever, no chills, no nausea, no vomiting, no diarrhea/constipation No recent weight changes No chest pain, no PND, no orthopnea - improved SOB. No dizziness, blurred vision No thirst, no heat or cold intolerance Objective Vitals Vital Signs Date Temp Pulse Resp B/P (MAP) Pulse Ox O2 O2 Flow FiO2 Time Delivery Rate 01/01/19 98.0 62 18 120/56 98 12:11 (77) 01/01/19 Nasal 2.0 09:19 Cannula 01/01/19 21 03:02 Intake and Output 12/31/18 12/31/18 01/01/19 1414:59 22:59 06:59 IntakeIntake Total 450 ml BalanceBalance 450 ml Exam General: WN/WD/NAD, AOx 2-3 HEENT: Unicetric/atraumatic/EOMI (follow commands) NECK: JVD elevated, no thyromegaly Lymph: no lymphadenopathy HEART: regular with no S3, II/ systolic murmur at apex, PMI L LUNGS: Coarse sounds ABD: soft, NT, ND, +BS : Intact Neuro: non focal SKIN: chronic changes EXT: trace edema Results/Medications Result Diagram: 01/01/19 0515 01/01/19 0515 Results 24 hrs Laboratory Tests Test 12/31/18 18:13 01/01/19 00:12 01/01/19 05:15 Troponin I 0.015 0.014 White Blood Count 6.0 # Red Blood Count 4.31 Hemoglobin 13.7 Hematocrit 41.3 Mean Corpuscular Volume 95.8 Mean Corpuscular Hemoglobin 31.8 Mean Corpuscular Hemoglobin Concent 33.2 Red Cell Distribution Width 13.3 Platelet Count 135 L Mean Platelet Volume 12.9 H Immature Granulocytes % 0.300 Neutrophils % 36.6 L Lymphocytes % 42.1 Monocytes % 17.1 H Eosinophils % 3.2 Basophils % 0.7 Nucleated Red Blood Cells % 0.0 Immature Granulocytes # 0.020 Neutrophils # 2.2 Lymphocytes # 2.5 Monocytes # 1.0 H Eosinophils # 0.2 Basophils # 0.0 Nucleated Red Blood Cells # 0.0 Sodium Level 143 Potassium Level 3.5 Chloride Level 103 Carbon Dioxide Level 32 H Anion Gap 8 Blood Urea Nitrogen 30 #H Creatinine 0.74 Est Glomerular Filtrat Rate mL/min Glucose Level 104 Calcium Level 9.2 Triglycerides Level 87 Cholesterol Level 109 LDL Cholesterol, Calculated 52 HDL Cholesterol 40 Cholesterol/HDL Ratio 2.7 Thyroid Stimulating Hormone (TSH) 8.680 H Home Meds Reported Medications Aspirin* (Aspirin* EC) 81 Mg Tablet.dr, 81 MG PO DAILY, TAB 12/31/18 Levothyroxine Sodium* (Levothyroxine Sodium*) 88 Mcg Tablet, 88 MCG PO BEFORE BREAKFAST, #30 TAB 12/31/18 Atorvastatin Calcium* (Atorvastatin Calcium*) 20 Mg Tablet, 20 MG PO QHS, #30 TAB 12/31/18 Amiodarone Hcl* (Amiodarone Hcl*) 200 Mg Tablet, 200 MG PO DAILY, #30 TAB 12/31/18 Enalapril Maleate* (Enalapril Maleate*) 2.5 Mg Tablet, 2.5 MG PO DAILY, TAB 12/31/18 Omeprazole* (Omeprazole*) 20 Mg Capsule.dr, 20 MG PO DAILY, #30 CAP 12/31/18 Discontinued Reported Medications Sertraline Hcl* (Zoloft*) 50 Mg Tablet, 50 MG PO DAILY, TAB 09/10/14 Ascorbic Acid (Vitamin C) 500 Mg Tab, 500 MG PO DAILY, TAB 09/10/14 Albuterol Sulfate* (Ventolin HFA*) 18 Gm Hfa.aer.ad, 2 PUFF IH Q4H PRN for WHEEZING AND RESP DISTRESS, EA 09/10/14 Acetaminophen* (Acetaminophen*) 325 Mg Tablet, 650 MG PO Q4H PRN for FEVER GREATER THAN 100.6, TAB 09/10/14 Protein Supplement (Promod) 946 Ml Liquid, 30 ML PO TID 09/10/14 Omeprazole* (Prilosec*) 20 Mg Capsule.dr, 20 MG PO BID, CAP 09/10/14 Multivitamins/Minerals* (Multivitamin w/Minerals*) 1 Tab Tablet, 1 TAB PO DAILY, TAB 09/10/14 Ferrous Sulfate* (Ferrous Sulfate*) 325 Mg Tablet, 325 MG PO DAILY, TAB 09/10/14 Salmeterol Xinaf/Fluticasone* (Advair*) 250-50 Diskus Inhaler, 1 INH INH BID, INH 09/10/14 Aspirin* (Aspirin* Chew) 81 Mg Tab.chew, 81 MG PO DAILY, TAB.CHEW 09/10/14 Discontinued Scripts Acetaminophen* (Tylophen*) 500 Mg Capsule, 1 CAP PO Q6H PRN for PAIN AND OR MIKE VATED TEMP, #15 CAP Prov:FREDI SPRINGER MD 01/17/17 Dextromethorphan Hb-Promethazine Hcl (Promethazine DM Syrup) 473 Ml Syrup, 5 ML PO Q6H PRN for COUGH, #4 OZ Prov:FREDI SPRINGER MD 01/17/17 Azithromycin* (Zithromax*) 250 Mg Tablet, 250 MG PO .ZPACK DIRECTED, #6 TAB TAKE 500 MG (2 TABS) THE FIRST DAY THEN 250 MG (1 TAB) DAYS 2-5 Prov:FREDI SPRINGER MD 01/17/17 Warfarin Sod (Coumadin) 3 Mg Tab, 3 MG PO ONCE@17, #5 Prov:VENICE ROSALES NP 09/15/14 [Metoprolol Succinate] 25 MG TABSR No Conflict Check, 12.5 MG PO HS for 30 Days Prov:VENICE ROSALES NP 09/15/14 Lisinopril* (Zestril*) 5 Mg Tab, 5 MG PO DAILY for 30 Days Prov:EVNICE ROSALES NP 09/15/14 Furosemide* (Lasix*) 40 Mg Tab, 40 MG PO DAILY for 30 Days Prov:VENICE ROSALES NP 09/15/14 Atorvastatin Calcium* (Atorvastatin Calcium*) 20 Mg Tab, 40 MG PO HS for 30 Days Prov:VENICE ROSALES NP 09/15/14 Amiodarone Hcl* (Cordarone*) 200 Mg Tab, 100 MG PO DAILY for 30 Days, TAB Prov:VENICE ROSALES NP 09/15/14 Docusate Calcium* (Docusate Calcium*) 240 Mg Cap, 240 MG PO DAILY for 30 Days Prov:VENICE ROSALES [facility] C[facility] ASSISTANT DIRECTOR 08/26/14 Medications Current Medications Furosemide (Lasix) 20 mg DAILY IV Last administered on 01/01/19at 09:00; Admin Dose 20 MG; Start 01/01/19 at 09:00 Amiodarone HCl (Cordarone) 200 mg DAILY PO Last administered on 01/01/19 08:59; Admin Dose 200 MG; Start 01/01/19 at 09:00 Aspirin (Halfprin) 81 mg DAILY PO Last administered on 01/01/19 08:59; Admin Dose 81 MG; Start 01/01/19 at 09:00 Atorvastatin Calcium (Lipitor) 20 mg QHS PO Last administered on 12/31/18 22:2 6; Admin Dose 20 MG; Start 12/31/18 at 21:00 Enalapril Maleate (Vasotec) 2.5 mg DAILY PO Last administered on 01/01/19 08:59; Admin Dose 2.5 MG; Start 01/01/19 at 09:00 Levothyroxine Sodium (Synthroid) 88 mcg BEFORE BREAKFAST PO Last administered on 01/01/19 06:22; Admin Dose 88 MCG; Start 01/01/19 at 07:00 Guaifenesin/ Dextromethorphan (Robitussin Dm Liquid Cup) 10 ml Q6 PRN PO COUGH; Start 12/31/18 at 21:00 Ceftriaxone Sodium 50 ml @ 100 mls/hr DAILY IVPB Last administered on 01/01/19 09:00; Admin Dose 100 MLS/HR; Start 12/31/18 at 22:00 Albuterol/ Ipratropium (Duoneb) 3 ml Q6H RESP THERAPY PRN HHN COUGH Last administered on 01/01/19 03:02; Admin Dose 3 ML; Start 12/31/18 at 21:30 Assessment/Plan Hospital Course (Demo Recall) 1. Increased BNP, assess for congestive heart failure - con't gentle diuresis - better now. 2. History of coronary artery disease, status post coronary artery bypass graft surgery x5 in 2014 - rulled out ME, con't med rx. 3. Hypertension- controlled, con't med rx. 4. Dyslipidemia. 5. Cough- on ravi-BX, better overall. 6. Upper respiratory infection. 7. History of cardiac arrhythmia, on amiodarone - in sinus now, will follow- ECHO 45% EF. CARRNIGTON SMITH MD Jan 01, 2019 13:37
[2019-01-01] MEDS: GUAIFENESIN/DM 5ML CUP PO PRN (21:22)
[2019-01-01] MEDS: ATORVASTATIN 20 MG TAB PO SCH (21:22)
[2019-01-02] VITALS (9 sets, daily range): BP systolic 113–121; BP diastolic 51–68; PULSE 61–70; RESP 18–20
[2019-01-02] MEDS: GUAIFENESIN/DM 5ML CUP PO PRN (03:36)
[2019-01-02] MEDS: LEVOTHYROXINE 88 MCG TAB PO SCH (06:15)
[2019-01-02] MEDS: CEFTRIAXONE 1 GM/50 ML (PMX) 50 ML IVPB SCH (08:39)
[2019-01-02] MEDS: ASPIRIN (EC) 81 MG TAB PO SCH (08:40)
[2019-01-02] MEDS: ENALAPRIL 2.5 MG TAB PO SCH (08:40)
[2019-01-02] MEDS: FUROSEMIDE 20 MG INJ IV SCH (08:41)
[2019-01-02] MEDS: AMIODARONE 200 MG TAB PO SCH (08:41)
--- NOTE | 2019-01-02 09:42 | PDOCDIS ---
Discharge Instructions CONDITION [id number] Patient Condition: [id number] Good HOME CARE INSTRUCTIONS: [id number] Diet Instructions: [id number] FOLLOW UP/APPOINTMENTS Follow-up Plan pcp 1 week FORTINO MCKEON MD January 02, 2019 09:42
[2019-01-02] MEDS ORDERED: LEVO88TA3 PO (09:46)
[2019-01-02] MEDS ORDERED: FURO20TA3 PO (09:46)
[2019-01-02] MEDS ORDERED: LEVO100T8 PO (09:50)
--- NOTE | 2019-01-02 14:01 | RADRPT ---
Vent Rate: 61 bpm RR Interval: 992 msec W[place] Interval: 163 msec QRS Duration: 91 msec QT Interval: 470 msec QTC Interval: 472 msec P-R-T [place]: 53 - 19 - -8 degrees Sinus rhythm Multiple ventricular premature complexes Electronically Signed By: Isaías Narayan
--- NOTE | 2019-01-02 14:46 | CONS ---
Assessment/Plan Assessment/Plan Hospital Course (Demo Recall) IMPRESSION: 1. Increased BNP, assess for congestive heart failure. 2. History of coronary artery disease, status post coronary artery bypass graft surgery x5 in 2013. 3. Hypertension. 4. Dyslipidemia. 5. Cough. 6. Upper respiratory infection. 7. History of cardiac arrhythmia, on amiodarone. Recc: -Tele -Contimue asa/statin -Continue amiodarone -Continue enalapril -Continue daily lasix -Continue abx's and f/u cx data Consultation Date/Type/Reason Admit Date/Time Dec 31, 2018 at 12:23 Initial Consult Date 12/31/18 Type of Consult Cardiology Reason for Consultation sob/increased BNP Requesting Provider: PATRICE CAVAZOS MD Date/Time of Note DATE: 01/02/19 TIME: 14:42 Exam/Review of Systems Vital Signs Vitals Vital Signs Date Temp Pulse Resp B/P (MAP) Pulse Ox O2 O2 Flow FiO2 Time Delivery Rate 01/02/19 69 12:09 01/02/19 98.6 20 113/51 98 Room Air 11:19 (71) 01/01/19 2.0 09:19 01/01/19 21 03:02 Intake and Output 01/01/19 01/01/19 01/02/19 1515:00 23:00 07:00 IntakeIntake Total 800 ml 400 ml OutputOutput Total 700 ml BalanceBalance 800 ml -300 ml Exam Exam Review of Systems: CONSTITUTIONAL: No fevers, chills. PULMONARY: No sob CARDIOVASCULAR: No chest pain/palpitations GASTROINTESTINAL: No nausea/vomiting. GENITOURINARY: No hematuria/dysuria. MUSCULOSKELETAL: No myagias/arthalgias. PSYCHIATRIC: The patient denies depression. NEUROLOGIC: No weakness Constitutional: alert Psych: no complaints Head: normocephalic ENMT: mucosa pink and moist Neck: supple, jvd Respiratory: clear to auscultation Cardiovascular: regular rate and rhythm Gastrointestinal: soft, non-tender Musculoskeletal: muscle tone (normal) Extremities: edema (none) Neurological: other (No focal deficits) Labs Result Diagram: 01/01/19 0515 01/01/19 0515 Medications Medications Current Medications Furosemide (Lasix) 20 mg DAILY IV Last administered on 01/02/19at 08:41; Admin Dose 20 MG; Start 01/01/19 at 09:00 Amiodarone HCl (Cordarone) 200 mg DAILY PO Last administered on 01/02/19 08:41; Admin Dose 200 MG; Start 01/01/19 at 09:00 Aspirin (Halfprin) 81 mg DAILY PO Last administered on 01/02/19 08:40; Admin Dose 81 MG; Start 01/01/19 at 09:00 Atorvastatin Calcium (Lipitor) 20 mg QHS PO Last administered on 01/01/19 21:22; Admin Dose 20 MG; Start 12/31/18 at 21:00 Enalapril Maleate (Vasotec) 2.5 mg DAILY PO Last administered on 01/02/19 08:40; Admin Dose 2.5 MG; Start 01/01/19 at 09:00 Levothyroxine Sodium (Synthroid) 88 mcg BEFORE BREAKFAST PO Last administered on 01/02/19 06:15; Admin Dose 88 MCG; Start 01/01/19 at 07:00 Guaifenesin/ Dextromethorphan (Robitussin Dm Liquid Cup) 10 ml Q6 PRN PO COUGH Last administered on 01/02/19 03:36; Admin Dose 10 ML; Start 12/31/18 at 21:00 Ceftriaxone Sodium 50 ml @ 100 mls/hr DAILY IVPB Last administered on 01/02/19 08:39; Admin Dose 100 MLS/HR; Start 12/31/18 at 22:00 Albuterol/ Ipratropium (Duoneb) 3 ml Q6H RESP THERAPY PRN HHN COUGH Last administered on 01/01/19 20:34; Admin Dose 3 ML; Start 12/31/18 at 21:30 FAMILIA LEVY January 02, 2019 14:46
--- NOTE | 2019-01-03 01:54 | DS ---
DATE OF ADMISSION: 12/31/2018 DATE OF DISCHARGE: 01/02/2019 DISCHARGE DIAGNOSES: 1. Upper respiratory infection. 2. Mild congestive heart failure, resolved. 3. Cardiomyopathy. 4. Hypertension. 5. Hyperlipidemia. 6. History of asthma, compensated. 7. Status post pacemaker placement. HOSPITAL COURSE: An 78-year-old female with multiple other medical problems, presented to emergency room with complaint of productive cough of white phlegm. She denied any chest pain. The patient was started on IV antibiotics. She was seen in consultation by cardiology. She received IV Lasix. A 2 D echo showed ejection fraction of 40% to 50%. There was evidence of stage I diastolic dysfunction. There was no valvular disease. The patient is now in a stable condition for discharge. I prescribe d Lasix 20 mg p.o. daily. Her TSH was elevated to more than 8. I increased her levothyroxine to 100 mcg daily. MEDICATIONS ON DISCHARGE: 1. Amiodarone 200 mg daily. 2. Aspirin 81 mg daily. 3. Lipitor 20 mg at bedtime. 4. Enalapril 2.5 mg daily. 5. Omeprazole 20 mg daily. 6. Lasix 20 mg daily. 7. Levothyroxine 100 mcg daily. FOLLOWUP: Follow up with PCP in 1 week. Dictated By: FORTINO CARR/ELZA Conf#: [id number] DID#: [id number]
== END 2019-01-02 16:10 | disposition home or self-care (01) ==
LOC: E/R 09:04 → 6WM 12:23 → INTOOBSV 12:23
PROVIDERS: ADMIT Internal Medicine; ATTEND Internal Medicine
DX: J06.9 Acute upper respiratory infection, unspecified (principal); I11.0 Hypertensive heart disease with heart failure; I50.9 Heart failure, unspecified; I42.9 Cardiomyopathy, unspecified; E78.5 Hyperlipidemia, unspecified; J44.9 Chronic obstructive pulmonary disease, unspecified; I25.10 Atherosclerotic heart disease of native coronary artery without angina pectoris; Z95.1 Presence of aortocoronary bypass graft; J45.909 Unspecified asthma, uncomplicated; E78.00 Pure hypercholesterolemia, unspecified; Z79.82 Long term (current) use of aspirin; Z95.0 Presence of cardiac pacemaker
CPT/HCPCS: 36415; 71045; 80048; 80053; 80061; 83690; 83880; 84443; 84484; 85025; 93005; 93306; 94640; 94664; 99285; G0378; J0696; J1940; 99217